=== PATIENT | male | born 1975 | race Caucasian/White ===

== ENCOUNTER 2020-07-29 03:02 | Emergency (ER) | payer BC ==
[~2020-07-29] VITALS: Ht 182.9 cm; Wt 113.4 kg
[2020-07-29 03:08] VITALS: Ht 182.9 cm; Wt 113.4 kg
[2020-07-29 05:28] VITALS: BP 129/89
== END 2020-07-29 05:28 | disposition home or self-care (01) ==
LOC: ED 03:02
DX: R07.89 Other chest pain (principal); I10 Essential (primary) hypertension; E11.9 Type 2 diabetes mellitus without complications; E78.00 Pure hypercholesterolemia, unspecified